=== PATIENT | female | born 1970 | race Caucasian/White ===

== ENCOUNTER → 2021-08-23 10:46 | Outpatient (BNVA) | payer OTHER, SELFPAY | PROVIDERS: Visit Provider Nurse Practitioner Family | DX: M79.644 Pain in right finger(s) (principal) | CPT/HCPCS: 73130 ==

== ENCOUNTER 2021-10-14 06:03 | Day surgery (SDC) | payer OTHER, SELFPAY ==
[2021-10-14] VITALS (8 sets, daily range): BP systolic 128–209; BP diastolic 82–102; PULSE 73–88; RESP 14–18; TEMP 35.9–36.4; O2SAT 94–99
[2021-10-14] MEDS: sodium chloride 0.9% 1,000 ML 30 ML IV (06:41)
[2021-10-14 06:46] LABS: OR HCG Qualitative Urine Negative (Negative)
--- NOTE | 2021-10-14 07:04 | ANES.PREANE2 ---
Pre-Anesthetic Assessment Height/Weight: Height 1.73 m Weight 90.718 kg Temp Pulse Resp BP Pulse Ox O2 Del Method 97.5 F L 74 18 165/102 94 10/14/21 06:19 10/14/21 06:19 10/14/21 06:19 10/14/21 06:19 10/14/21 06:19 10/14/21 06:23 Preop Diagnosis: Mass right olecranon Operation Date: 10/14/21 07:00 Proposed Procedures p Mass of right elbow [id number](Right) - Indra Oneill MD Familial anesthetic complications: none Was Beta Brody taken within 24 hours: N/A Was Clonidine taken within 24 hours: N/A Last intake: Intake Last Liquid Date 10/13/21 Last Liquid Time 22:30 Last Solid Date 10/13/21 Last Solid Time 22:30 Social No alcohol and No tobacco Exam alert, oriented x 3, clear to auscultation bilaterally and regular rate & rhythm Airway Submandibular: within normal limits Cervical ROM: within normal limits Mallampati: Class I Dentition: full Musc/skel Osteoarthritis/DJD chronic steroids Anesthetic Plan ASA status: 2 Anesthesia: MAC Medications/Allergies Home Medications Medication Instructions Recorded Confirmed Last Taken Type prednisone 2.5 mg tablet 2.5 mg PO DAILY 10/13/21 10/14/21 10/13/21 History Allergies Allergy/AdvReac Type Severity Reaction Status Date / Time aspirin [From Char Aspirin] Allergy ALGY-Anaphy Verified 09/07/21 13:55 laxis Current Medications Generic Name Dose Route Start Last Admin Trade Name Geoq PRN Reason Stop Dose Admin Sodium Chloride 1,000 mls @ 30 mls/hr 10/14/21 06:15 10/14/21 06:41 Sodium Chloride 0.9% IV 10/15/21 06:14 30 mls/hr .Q24H MICHAEL Administration PFSH Anesthesia Social History (Updated 09/07/21 @ 13:57 by Jossue Bowen LPN) Smoking and tobacco status: never smoked Alcohol intake: never Data Anesthesia Cardiac Studies: No Data to Display
--- NOTE | 2021-10-14 07:08 | W.PM.OPSFHP ---
Same Day Surgery H&P Indication for Procedure/HPI DATE OF PROCEDURE: October 14, 2021 CHIEF COMPLAINT/INDICATIONFOR SURGICAL PROCEDURE: Mass right elbow PREOP DIAGNOSIS: Mass right olecranon PLANNED PROCEDURE: Operation Date: 10/14/21 07:00 Proposed Procedures p Mass of right elbow [id number](Right) - Indra Oneill MD 51-year-old female with 2-year history of mass overlying right olecranon. Fluctuates but generally increasing in size. Here for excision Medications/Allergies* Home Medications Medication Instructions Recorded Confirmed Type prednisone 2.5 mg tablet 2.5 mg PO DAILY 10/13/21 10/14/21 History Allergies/Adverse Reactions Allergy/AdvReac Type Severity Reaction Status Date / Time aspirin [From [employer] Aspirin] Allergy ALGY-Anaphy Verified 09/07/21 13:55 laxis Current Medications: Generic Name Dose Route Start Last Admin Trade Name Freq PRN Reason Stop Dose Admin Sodium Chloride 1,000 mls @ 30 mls/hr 10/14/21 06:15 10/14/21 06:41 Sodium Chloride 0.9% IV 10/15/21 06:14 30 mls/hr .Q24H MICHAEL Administration Pertinent History/Comorbid Conditions* Social History Smoking and tobacco status: never smoked Alcohol intake: never Pertinent Exam Findings alert, oriented x 3, clear to auscultation bilaterally, regular rate & rhythm and operative site marked Recommendations Surgery/Procedure today Coding Level of Care Code Acute Topline Beading Machine Tender for Ping Atkinson
[2021-10-14] MEDS: ceFAZolin 2,000 MG in sodium chloride 0.9% (plus) 50 ML 100 MG IV (07:12)
--- NOTE | 2021-10-14 07:57 | P.OP_ITS ---
Operative Report Date of procedure: October 14, 2021 Pre-op diagnosis: Preop Diagnosis Mass right olecranon Post-op diagnosis: same Procedure done: Excision subcutaneous mass right elbow Pathology: other Pathology: 2 subcutaneous masses with adherent olecranon skin were sent to pathology Surgeon: Indra Oneill Anesthesia: General Estimated blood loss (mL): 2 Complications: None Findings: Patient had stage 2 nodules overlying the olecranon approximately 1 cm diameter that were adherent to the overlying skin. Condition: stable Disposition: PACU Procedure: The patient was taken to the op the patient was taken to the operating room and sedated by the anesthesia service. The right upper extremity was prepped and draped with the elbow exposed. A timeout was performed. 10 cc of 1/4% Marcaine were infiltrated into the skin around the olecranon subcutaneous mass. The 2 masses were adherent to the olecranon skin but appeared mobile over the deep tissues. A slightly oblique elliptical incision was created with a scalpel blade approximately 2 cm from medial to lateral incorporating approximately centimeter of the skin proximal to the distal full- thickness flaps were taken down to the olecranon bursa. The masses and adherent skin were then elevated off of the deep bursal tissue. Superficial bleeding was dealt with with electrocautery. The skin was closed with interrupted 3-0 Prolene. Xeroflo gauze 4 x 4's compressive web roll and an Spike wrap were applied. The patient was taken recovery room in stable condition.
--- NOTE | 2021-10-14 13:44 | ANE.PACU2 ---
Inpatient post-anesthesia follow up: Airway intact: Yes Vital signs: Temperature 97.5 F Pulse Rate 76 Respiratory Rate 18 Blood Pressure 172/90 Pulse Oximetry 99 Oxygen Delivery Me thod Room Air Oxygen Flow Rate 6 Fraction of Inspir ed Oxygen Hydration adequate: Yes Nausea and vomiting: No Pain level: 1 Mental status: Baseline
== END 2021-10-14 09:23 | disposition home or self-care (01) ==
PROVIDERS: Anesthesiology; Visit Provider Orthopaedic Surgery
PROC: (CPT 24076; principal; 2021-10-14 07:00)
DX: M67.421 Ganglion, right elbow (principal)
CPT/HCPCS: 24076; 84703; 88307; J2250; J2704; J3010; J3490; J7030

== ENCOUNTER 2021-11-27 11:18 | Emergency (ER) | payer OTHER, SELFPAY ==
[2021-11-27 11:27] VITALS: BP 155/101; PULSE 94; RESP 14; TEMP 36.7; O2SAT 97; BMI 31.9
--- NOTE | 2021-11-27 11:50 | ED_ITS ---
HPI - General Adult General: Chief complaint: General Medical Stated complaint: Arms and legs are hurting Time Seen by Provider: 11/27/21 11:32 Source: patient Mode of arrival: ambulatory Limitations: no limitations History of Present Illness: 51-year-old female who has been havingExtremity pain for months states she been having increasing pain in her arms and legs and hips states she is been seeing her PCP is on a low-dose steroid she sees [facility] next month they are concerned she may have rheumatoid arthritis. States that she just had worsening pain over the last 3 to 4 weeks pain sharp in nature no 1 specific area states mainly in her joints of her lower extremity and upper extremity denies any fevers. Patient is able ambulate to the room. Associated symptoms: Deny chest pain, dyspnea, headache(s), nausea, rash or vomiting Review of Systems Const: Denies: fever(s), chills, body aches or change in appetite Eyes: Denies: blurry vision or eye discomfort ENMT: Denies: throat pain or dental pain Card: Denies: chest pain Resp: Denies: dyspnea GI: Denies: abdominal pain, nausea, vomiting or diarrhea : Denies: dysuria Musc: Reports: extremity pain and joint pain Skin/Breast: Denies: rash Neuro: Denies: headache(s) Psych: Denies: depression Kalyan/Lymph: Denies: easy bruising All/Imm: Denies: urticaria PFSH ED PFSH: Medical History (Updated 11/27/21 @ 12:56 by Jax Adkins MD) No pertinent past medical history Social History Smoking and tobacco status: never smoked Alcohol intake: never Physical Exam Const: COMMON NORMALS: no acute distress, patient oriented x3 and healthy appearing HENMT: COMMON NORMALS: normocephalic and atraumatic HEAD & SCALP: norm ocephalic and atraumatic Eye: COMMON NORMALS: Equal, round and reactive pupils present and EOMs intact bilaterally PUPIL: Yes Equal, round and reactive pupils present Neck/C-Spine: COMMON NORMALS: full ROM and supple Chest: COMMONS NORMALS: normal inspection of the chest and normal palpation of entire chest wall Resp: COMMON NORMALS: normal respiratory effort, No retractions, No use of accessory muscles and clear to auscultation bilaterally AUSCULTATION: clear to auscultation bilaterally Cardio: COMMON NORMALS: regular rate, regular rhythm and No murmurs present (Cardio) RATE: regular rate RHYTHM: regular rhythm GI: COMMON NORMALS: Normal to inspection, nondistended, normoactive bowel sounds present, Soft to palpation, non-tender and no masses PALPATION: Yes Soft to palpation Extremity: COMMON NORMALS: normal to inspection and full ROM Neuro: COMMON NORMALS: patient oriented x3, moves all extremities and no focal motor deficits Psych: COMMON NORMALS: mental status grossly normal, Normal thought process present and cooperative THOUGHT PROCESS: Normal thought process present Skin: COMMON NORMALS: no rashes or lesions noted and no wounds GENERAL SKIN EXAM: no rashes or lesions noted Course Vital Signs: Vital signs: Vital Signs Temperature 98.0 F 11/27/21 11:27 Pulse Rate 94 11/27/21 11:27 Respiratory Rate 14 11/27/21 11:27 Blood Pressure 155/101 11/27/21 11:27 Pulse Oximetry 97 11/27/21 11:27 Oxygen Delivery Me thod 11/27/21 11:[address] [facility] - General Adult Medical Decision Making Patient presents here with joint pains been going on for months she is well- appearing here she is to follow-up [facility] as scheduled she understands agrees to plan. Lab Data : 11/27/21 11:56 Laboratory Results WBC 7.9 10^3/uL (4.0-10.0) 11/27/21 11:56 RBC 4.82 10^6/uL (4.1-5.3) 11/27/21 11:56 Hgb 13.4 g/dL (11.5-15.3) 11/27/21 11:56 Hct 41.1 % (37.0-47.0) 11/27/21 11:56 MCV 85.3 fl (81-99) 11/27/21 11:56 MCH 27.8 pg (28.0-34.0) L 11/27/21 11:56 MCHC 32.6 g/dL (30.0-36.0) 11/27/21 11:56 RDW 12.4 % (12.1-15.1) 11/27/21 11:56 Plt Count 309 10^3/cmm (130-400) 11/27/21 11:56 MPV 9.0 fL (7.4-10.4) 11/27/21 11:56 Neut % (Auto) 77.6 % 11/27/21 11:56 Lymph % (Auto) 14.6 % 11/27/21 11:56 Crowley % (Auto) 6.7 % 11/27/21 11:56 Eos % (Auto) 0.4 % 11/27/21 11:56 Baso % (Auto) 0.6 % 11/27/21 11:56 Neut # (Auto) 6.15 10^3/uL (1.8-7.7) 11/27/21 11:56 Lymph # (Auto) 1.2 10^3/uL (0.8-4.8) 11/27/21 11:56 Crowley # (Auto) 0.5 10^3/uL (0.2-0.9) 11/27/21 11:56 Eos # (Auto) 0.0 10^3/uL (0.0-0.8) 11/27/21 11:56 Baso # (Auto) 0.1 10^3/uL (0.0-0.1) 11/27/21 11:56 Nucleated RBC % (auto) 0 % 11/27/21 11:56 Nucleated RBCs # 0.0 /100WBC 11/27/21 11:56 Discharge Plan Discharge Patient Disposition: Home Clinical Impression: Arthralgia Condition: Stable Prescriptions: No Action prednisone 2.5 mg Tablet 2.5 mg PO DAILY hydrocodone-acetaminophen 5-325 mg tablet 1 tab PO Q4H Qty: 10 0RF Discharge Orders: Discharge ED (Routine); Ordered 11/27/21 Ordered By: Jax Adkins Referrals: Mary Nugent [Primary Care Provider] - Discharge Diet: Advance as tolerated Discharge Activity: Resume usual activity Patient Instructions: Arthralgia (ED) Coding Level of Care Code ED Circle Saw Operator for Chg Fwd Exam Comprehensive
[2021-11-27] MEDS: HYDROmorphone 1 mg/mL INJ 1 mL 0.5 MG IVP (11:59)
[2021-11-27] MEDS: dexamethasone 10 mg/mL INJ IVP (11:59)
[2021-11-27] MEDS: ondansetron 2 mg/ML SDV 2 mL 4 MG IVP (11:59)
[2021-11-27 12:01] LABS: Basophils # 0.1 10^3/uL (0.0-0.1); Basophils % 0.6 %; Eosinophils % 0.4 %; Hematocrit 41.1 % (37.0-47.0); Hemoglobin 13.4 g/dL (11.5-15.3); Lymphocytes # 1.2 10^3/uL (0.8-4.8); Lymphocytes % 14.6 %; Mean Corpuscular HGB Conc 32.6 g/dL (30.0-36.0); Mean Corpuscular Hemoglobin 27.8 pg (28.0-34.0); Mean Corpuscular Volume 85.3 fl (81-99); Monocytes # 0.5 10^3/uL (0.2-0.9); Monocytes % 6.7 %; Neutrophils # 6.15 10^3/uL (1.8-7.7); Neutrophils % 77.6 %; Nucleated Red Blood Cells % 0 %; Platelet Count 309 10^3/cmm (130-400); Red Blood Count 4.82 10^6/uL (4.1-5.3); Red Cell Distribution Width 12.4 % (12.1-15.1); White Blood Count 7.9 10^3/uL (4.0-10.0)
[2021-11-27 13:09] VITALS: BP 152/74; PULSE 78
== END 2021-11-27 13:11 | disposition home or self-care (01) ==
PROVIDERS: Emergency Provider Emergency Medicine; PCP Nurse Practitioner Family
DX: M25.50 Pain in unspecified joint (principal)
CPT/HCPCS: 85025; 96374; 96375; 99284; J1100; J1170; J2405

== ENCOUNTER → 2021-12-20 10:10 | Outpatient (BNVA) | payer OTHER, SELFPAY | PROVIDERS: PCP Nurse Practitioner Family; Referring Provider Nurse Practitioner Family; Visit Provider Internal Medicine | DX: M45.0 Ankylosing spondylitis of multiple sites in spine (principal); M25.50 Pain in unspecified joint; M06.9 Rheumatoid arthritis, unspecified; R53.83 Other fatigue; M77.40 Metatarsalgia, unspecified foot | CPT/HCPCS: 36415; 72202; 73030; 73120; 80053; 82310; 82550; 82728; 83540; 83735; 83970; 84100; 84443; 84550; 85025; 85651; 86003; 86008; 86140; 86160; 86162; 86235; 86255; 86376; 86431; 86480; 86704; 86803; 86812; 87340 ==

== ENCOUNTER 2022-02-07 10:05 | Emergency (ER) | payer OTHER, SELFPAY ==
[2022-02-07 10:33] VITALS: BP 131/84; PULSE 107; RESP 16; TEMP 36.8; O2SAT 97; BMI 32.5
--- NOTE | 2022-02-07 10:38 | ECG_ITS ---
[facility] Test Date: 2022-02-07 Pat Name: Margaret Johnson Department: Room: Gender: Female Lineman: : 1970 Requested By: Aric Arevalo Order Number: [id number] MD: Sharan Solomon M.D. Measurements Intervals [place] Rate: 109 P: 59 ME: 146 QRS: 52 QRSD: 82 T: 30 QT: 304 QTc: 410 Interpretive Statements SINUS TACHYCARDIA POSSIBLE LEFT ATRIAL ENLARGEMENT [-0.1mV P-WAVE IN V1/V2] NONSPECIFIC T-WAVE ABNORMALITY ABNORMAL RHYTHM ECG No previous ECG available for comparison Electronically Signed On 02-07-2022 15:38:19 RUBBER BELT SPLICER by Sharan Solomon M.D. [email or web address]
[2022-02-07 10:43] LABS: Glucose Point of Care 152 mg/dL (70-110)
== END 2022-02-07 15:07 | disposition left against medical advice (07) ==
PROVIDERS: Emergency Provider Family Medicine; PCP Nurse Practitioner Family
DX: Z53.21 Procedure and treatment not carried out due to patient leaving prior to being seen by health care provider (principal); R55 Syncope and collapse
CPT/HCPCS: 36416; 82962; 93005

== ENCOUNTER → 2022-03-10 13:01 | Outpatient (BNVA) | payer OTHER, SELFPAY | PROVIDERS: PCP Nurse Practitioner Family; Visit Provider Internal Medicine | DX: M06.9 Rheumatoid arthritis, unspecified (principal) | CPT/HCPCS: 80053; 85025; 85651; 86140 ==